=== PATIENT | male | born 1970 ===

== ENCOUNTER → 2022-08-31 | Outpatient (CLI) | payer BC ==
[2022-08-31 10:30] LABS: BASOPHILS PERCENT AUTO 1 % (0-2); EOSINOPHILS PERCENT AUTO 2 % (0-6); Hemoglobin 14.8 g/dL (13.5-17.5); IMMATURE GRAN ABSOLUTE AUTO 0.02 K/mm3 (0.00-0.10); IMMATURE GRAN PERCENT AUTO 0 % (0-1); LYMPHOCYTES ABSOLUTE AUTO 3.37 K/mm3 (0.84-5.20); LYMPHOCYTES PERCENT AUTO 37 % (21-46); MONOCYTES PERCENT AUTO 8 % (4-13); Mean Corpuscular HGB 30.1 pg (26.0-34.0); Mean Corpuscular HGB Conc 33.6 g/dL (31.5-36.5); Mean Corpuscular Volume 89 fL (80-100); Mean Platelet Volume 10.1 fL (9.1-12.4); NEUTROPHILS PERCENT AUTO 52 % (41-73); Platelet Count 265 K/mm3 (150-400); Red Blood Cell Count 4.92 M/mm3 (4.30-5.90); White Blood Cell Count 9.09 K/mm3 (4.00-11.30)
[2022-08-31 10:43] LABS: Albumin, Blood 3.8 g/dL (3.4-5.0); Albumin/Globulin Ratio 1.1 (0.8-1.8); Bilirubin, Total 0.3 mg/dL (0.1-1.0); Bun/Creatinine Ratio 15.3 (12.0-20.0); Calcium, Blood 9.2 mg/dL (8.5-10.1); Creatinine, Blood 1.11 mg/dL (0.60-1.20); Globulin, Blood 3.6 g/dL (2.2-4.0); Potassium, Blood 4.1 mmol/L (3.5-5.5); Total Protein, Blood 7.4 g/dL (6.4-8.2)
== END | disposition home or self-care (01) ==
LOC: LAB 10:25 → LAB SHORT 10:25
PROVIDERS: Physician Assistant
DX: R49.0 Dysphonia (principal)
CPT/HCPCS: 80053; 85025

== ENCOUNTER 2022-09-14 09:08 | Emergency (ER) | payer BC ==
[~2022-09-14] VITALS: Ht 180.3 cm; Wt 113.4 kg
[2022-09-14 10:07] VITALS: BP 100/76
[2022-09-14] MEDS ORDERED: Nicoderm Cq1 EACH TOP (10:41)
[2022-09-14] MEDS ORDERED: Nicoderm Cq1 EAC1 TOP (10:41)
== END 2022-09-14 10:53 | disposition home or self-care (01) ==
LOC: ER 09:08
DX: J02.9 Acute pharyngitis, unspecified (principal)
CPT/HCPCS: 99282